=== PATIENT | female | born 1950 | race Caucasian/White ===

== ENCOUNTER 2018-05-03 11:50 | Outpatient (CLI) | payer OTHER | END 2018-05-03 11:58 | disposition home or self-care (01) | LOC: LAB 11:50 | DX: K62.5 Hemorrhage of anus and rectum (principal); D62 Acute posthemorrhagic anemia; Z86.010 Personal history of colon polyps; K51.419 Inflammatory polyps of colon with unspecified complications; D68.32 Hemorrhagic disorder due to extrinsic circulating anticoagulants; D50.8 Other iron deficiency anemias; D51.8 Other vitamin B12 deficiency anemias; I10 Essential (primary) hypertension; D68.8 Other specified coagulation defects; D68.0 Von Willebrand disease; R97.0 Elevated carcinoembryonic antigen [CEA]; R19.5 Other fecal abnormalities ==

== ENCOUNTER 2018-12-11 11:36 | Outpatient (CLI) | payer OTHER | END 2018-12-11 11:51 | disposition home or self-care (01) | LOC: LAB 11:36 | DX: D12.2 Benign neoplasm of ascending colon (principal); R19.4 Change in bowel habit; K57.30 Diverticulosis of large intestine without perforation or abscess without bleeding ==

== ENCOUNTER 2019-01-01 06:15 | Day surgery (SDC) | payer OTHER | END 2019-01-01 10:10 | disposition home or self-care (01) | LOC: CIR.AMB 06:15 | DX: D12.2 Benign neoplasm of ascending colon (principal) ==